=== PATIENT | female | born 1950 | race Two or more races ===

== ENCOUNTER → 2018-04-02 | Day surgery (SDC) | payer OTHER ==
[~2018-04-02] MED LIST: ASA81 MG PO; GABAPENTIN800 MG PO; HYDROCHLOROTHIA25 MG PO; LEVO-T25 MCG PO; NABUMETONE500 MG PO; PERCOCET 5-3251 EACH PO; REQUIP3 MG PO; TOPROL XL50 M1 PO; ZESTRIL40 M1 PO
== END | disposition home or self-care (01) ==
LOC: ADM 03-28 12:45 → CIR.AMB 06:25
DX: M75.122 Complete rotator cuff tear or rupture of left shoulder, not specified as traumatic (principal); M75.42 Impingement syndrome of left shoulder; M13.812 Other specified arthritis, left shoulder; M75.52 Bursitis of left shoulder

== ENCOUNTER 2020-03-16 05:50 | Day surgery (SDC) | payer OTHER ==
[~2020-03-16 05:50] MED LIST changes: +LOSARTAN-HCTZ1 EACH PO
== END 2020-03-16 10:25 | disposition home or self-care (01) ==
LOC: CIR.AMB 05:50 → ADM 11:30 → CIR.AMB 11:30
PROVIDERS: ATTEND Orthopaedic Surgery Hand Surgery
DX: M65.322 Trigger finger, left index finger (principal); M65.342 Trigger finger, left ring finger